=== PATIENT | female | born 1935 | race Caucasian/White ===

== ENCOUNTER 2020-08-02 06:54 | Emergency (ER) | payer MEDICARE, BC ==
[2020-08-02] MEDS ORDERED: PROTONIX20 M1 PO (07:17)
[2020-08-02] MEDS ORDERED: MIRAPEX0.125 M1 PO (07:17)
[2020-08-02] MEDS ORDERED: TIMOPTIC OCUDO OU (07:18)
[2020-08-02] MEDS ORDERED: PRESERVISION A1 EAC1 PO (07:18)
[2020-08-02] MEDS ORDERED: SIMETHICONE PO (07:18)
[2020-08-02] MEDS ORDERED: ZIOPTAN 0.00151 EACH OU (07:20)
[2020-08-02] MEDS ORDERED: TYLENOL 325MG325 MG PO (07:20)
[2020-08-02 08:53] LABS: BASO # 0.1 (0.02-0.10); EOS # 0.3 (0.04-0.40); HEMATOCRIT 35.7 % (37.0-47.0); HEMOGLOBIN 11.2 g/dL (12.5-16.0); LYMPH# 1.9 (1.50-4.00); MEAN CELL VOLUME 102 fl (78-100); MEAN CORPUSCULAR HEMOGLOBIN 32 pg (27-31); MEAN CORPUSCULAR HGB CONC 31 g/dL (33-37); MEAN PLATELET VOLUME 8.3 fl (7.4-10.4); MONO # 0.8 (0.20-0.80); PLATELET COUNT 386 K/mm3 (130-400); RED BLOOD COUNT 3.49 M/mm3 (4.10-5.30); RED CELL DISTRIBUTION WIDTH 14.6 % (11.5-14.5); WHITE BLOOD COUNT 11.2 K/mm3 (4.8-10.8)
[2020-08-02 09:05] LABS: ALBUMIN 3.7 g/dL (3.4-4.8)
[2020-08-02 09:06] LABS: POTASSIUM 3.9 mmol/L (3.5-5.1); SODIUM 138 mmol/L (136-145)
[2020-08-02 09:07] LABS: CALCIUM 9.4 mg/dL (8.3-10.5)
[2020-08-02 09:08] LABS: GLUCOSE 94 mg/dL (65-105); TOTAL PROTEIN 7.9 g/dL (6.2-8.1)
[2020-08-02 09:09] LABS: CARBON DIOXIDE 24 mmol/L (23-31)
[2020-08-02 09:10] LABS: TOTAL BILIRUBIN 0.3 mg/dL (0.2-1.2)
[2020-08-02 09:13] LABS: AST-SGOT 16 U/L (5-34)
[2020-08-02 09:14] LABS: ALT/SGPT 11 U/L (0-55)
[2020-08-02 09:25] LABS: TROPONIN-I < 0.03 ng/mL (<0.030)
[2020-08-02 13:18] VITALS: BP 105/56
[2020-08-02 22:18] LABS: PH-URINE 5.5 (5.0 - 8.0); URINE APPEARANCE HAZY; URINE BILIRUBIN NEGATIVE (NEGATIVE); URINE BLOOD NEGATIVE (NEGATIVE); URINE COLOR YELLOW; URINE GLUCOSE NEGATIVE (NEGATIVE); URINE KETONE NEGATIVE (NEGATIVE); URINE LEUKOCYTE ESTERASE TRACE (NEGATIVE); URINE NITRATE NEGATIVE (NEGATIVE); URINE PROTEIN(semi-quant) TRACE mg/dL (NEGATIVE); URINE UROBILINOGEN NORMAL (NORMAL)
[2020-08-02 22:19] LABS: URINE MUCUS PRESENT (NOT PRESENT)
[2020-10-17] MEDS ORDERED: ANESTHETIC ORAL14 GM TOP (12:23)
[2020-10-17] MEDS ORDERED: DULCOLAX S10 MG/SUPP RC (12:23)
[2020-10-17] MEDS ORDERED: EUCERIN1 CRE TOP (12:24)
[2020-10-17] MEDS ORDERED: IPRATROPIUM BROM3 M1 IH (12:24)
[2020-10-17] MEDS ORDERED: FLEET ENEM1 BOT/133 RC (12:26)
[2020-10-17] MEDS ORDERED: GOOD NEIGH1200 MG/15 PO (12:27)
[2020-10-17] MEDS ORDERED: TYLENOL 325MG325 MG PO (12:30)
[2020-10-17] MEDS ORDERED: ZOFRAN4 M2 PO (12:31)
== END 2020-08-02 12:56 | disposition home or self-care (01) ==
LOC: ED 06:54
PROVIDERS: Family Medicine
DX: S30.0XXA Contusion of lower back and pelvis, initial encounter (principal); I95.0 Idiopathic hypotension; L89.229 Pressure ulcer of left hip, unspecified stage; J43.9 Emphysema, unspecified; K21.9 Gastro-esophageal reflux disease without esophagitis; Z96.641 Presence of right artificial hip joint; Z79.899 Other long term (current) drug therapy; W19.XXXA Unspecified fall, initial encounter; Y92.121 Bathroom in nursing home as the place of occurrence of the external cause
CPT/HCPCS: J7030

== ENCOUNTER → 2020-08-04 | Outpatient (CLI) | payer MEDICARE, BC ==
[2020-08-02 13:18] VITALS: BP 105/56
[~2020-08-04] MED LIST: ANESTHETIC ORAL14 GM TOP; DULCOLAX S10 MG/SUPP RC; EUCERIN1 CRE TOP; FLEET ENEM1 BOT/133 RC; GOOD NEIGH1200 MG/15 PO; IPRATROPIUM BROM3 M1 IH; MIRAPEX0.125 M1 PO; PRESERVISION A1 EAC1 PO; PROTONIX20 M1 PO; SIMETHICONE PO; TIMOPTIC OCUDO OU; TYLENOL 325MG325 MG PO; ZIOPTAN 0.00151 EACH OU; ZOFRAN4 M2 PO
== END ==
LOC: RAD 14:48
DX: M79.605 Pain in left leg (principal); Z96.641 Presence of right artificial hip joint

== ENCOUNTER → 2020-08-06 | Outpatient (CLI) | payer MEDICARE, BC ==
[2020-08-02 13:18] VITALS: BP 105/56
[2020-08-06 23:24] LABS: FOLATE (FOLIC ACID) 12.2 ng/mL (7.0-31.4)
== END ==
LOC: LAB 10:27
PROVIDERS: Family Medicine
DX: D53.1 Other megaloblastic anemias, not elsewhere classified (principal)

== ENCOUNTER → 2020-09-01 | Outpatient (CLI) | payer MEDICARE, BC ==
[2020-08-02 13:18] VITALS: BP 105/56
== END ==
LOC: RAD 08:30
DX: M47.816 Spondylosis without myelopathy or radiculopathy, lumbar region (principal); M48.061 Spinal stenosis, lumbar region without neurogenic claudication; M48.07 Spinal stenosis, lumbosacral region; M47.817 Spondylosis without myelopathy or radiculopathy, lumbosacral region

== ENCOUNTER → 2020-10-13 | Outpatient (CLI) | payer MEDICARE, BC | LOC: LAB 13:33 | DX: K92.1 Melena (principal) ==

== ENCOUNTER → 2020-10-16 | Outpatient (CLI) | payer MEDICARE, BC ==
[2020-10-16 14:10] LABS: BASO # 0.07 (0.02-0.10); EOS # 0.54 (0.04-0.40); HEMATOCRIT 19.1 % (37.0-47.0); LYMPH# 2.17 (1.50-4.00); MEAN CELL VOLUME 108 fl (78-100); MEAN CORPUSCULAR HEMOGLOBIN 35 pg (27-31); MEAN CORPUSCULAR HGB CONC 32 g/dL (33-37); MEAN PLATELET VOLUME 8.5 fl (7.4-10.4); NEU # 5.48 (1.40-6.50); PLATELET COUNT 349 K/mm3 (130-400); RED CELL DISTRIBUTION WIDTH 15.6 % (11.5-14.5)
[2020-10-16 14:24] LABS: RED BLOOD COUNT 1.77 M/mm3 (4.10-5.30)
[2020-10-16 14:25] LABS: HEMOGLOBIN 6.1 g/dL (12.5-16.0)
[2020-10-27 09:41] LABS: FOLATE (FOLIC ACID) 11.1
== END ==
LOC: LAB 13:36
PROVIDERS: Family Medicine
DX: Z79.899 Other long term (current) drug therapy (principal)

== ENCOUNTER → 2020-10-17 | Outpatient (CLI) | payer MEDICARE, BC ==
[2020-10-17] VITALS (15 sets, daily range): BP systolic 82–128; BP diastolic 43–68
[2020-10-17 17:40] LABS: HEMATOCRIT 41.8 % (37.0-47.0); HEMOGLOBIN 13.3 g/dL (12.5-16.0)
== END ==
LOC: AMSURD 10:46
PROVIDERS: Family Medicine
DX: Z79.899 Other long term (current) drug therapy (principal)
CPT/HCPCS: J7050; P9016

== ENCOUNTER 2021-03-09 20:02 | Emergency (ER) | payer MEDICARE, BC ==
[~2021-03-09] VITALS: Ht 162.6 cm; Wt 37.4 kg
[2021-03-09] MEDS ORDERED: PEPCID 20MG TAB20 MG PO (21:35)
[2021-03-09] MEDS ORDERED: REFRESH TEARS15 ML OU (21:38)
[2021-03-09] MEDS ORDERED: BENADRYL EXTRA STR2% TOP (21:41)
[2021-03-09] MEDS ORDERED: FLEET ENEM1 BOT/133 RC (21:42)
[2021-03-09 23:19] LABS: URINE APPEARANCE CLEAR; URINE BILIRUBIN NEGATIVE (NEGATIVE); URINE BLOOD NEGATIVE (NEGATIVE); URINE COLOR YELLOW; URINE GLUCOSE NEGATIVE (NEGATIVE); URINE KETONE NEGATIVE (NEGATIVE); URINE LEUKOCYTE ESTERASE TRACE (NEGATIVE); URINE NITRATE NEGATIVE (NEGATIVE); URINE PROTEIN(semi-quant) TRACE mg/dL (NEGATIVE); URINE UROBILINOGEN NORMAL (NORMAL)
[2021-03-09 23:47] VITALS: BP 90/59
== END 2021-03-09 23:47 | disposition home or self-care (01) ==
LOC: ED 20:02
PROVIDERS: Nurse Practitioner
DX: S30.0XXA Contusion of lower back and pelvis, initial encounter (principal); I95.0 Idiopathic hypotension; J43.9 Emphysema, unspecified; Z79.899 Other long term (current) drug therapy; W01.198A Fall on same level from slipping, tripping and stumbling with subsequent striking against other object, initial encounter; Y92.129 Unspecified place in nursing home as the place of occurrence of the external cause

== ENCOUNTER → 2021-04-13 | Outpatient (CLI) | payer MEDICARE, BC ==
[~2021-04-13] MED LIST changes: +BENADRYL EXTRA STR2% TOP; +PEPCID 20MG TAB20 MG PO; +REFRESH TEARS15 ML OU
[2021-04-14 00:17] LABS: URINE APPEARANCE HAZY; URINE COLOR YELLOW
[2021-04-14 00:23] LABS: URINE BILIRUBIN NEGATIVE (NEGATIVE); URINE BLOOD NEGATIVE (NEGATIVE); URINE GLUCOSE NEGATIVE (NEGATIVE); URINE KETONE NEGATIVE (NEGATIVE); URINE LEUKOCYTE ESTERASE 1+ (NEGATIVE); URINE NITRATE NEGATIVE (NEGATIVE); URINE PROTEIN(semi-quant) 1+ (NEGATIVE); URINE UROBILINOGEN NORMAL (NORMAL)
== END ==
LOC: LAB 23:25
PROVIDERS: Family Medicine
DX: N39.0 Urinary tract infection, site not specified (principal)

== ENCOUNTER → 2021-07-01 | Outpatient (CLI) | payer MEDICARE, BC, MEDICAID ==
[2021-07-01 13:03] LABS: URINE APPEARANCE CLEAR; URINE BILIRUBIN NEGATIVE (NEGATIVE); URINE BLOOD NEGATIVE (NEGATIVE); URINE COLOR YELLOW; URINE GLUCOSE NEGATIVE (NEGATIVE); URINE KETONE NEGATIVE (NEGATIVE); URINE LEUKOCYTE ESTERASE TRACE (NEGATIVE); URINE NITRATE NEGATIVE (NEGATIVE); URINE PROTEIN(semi-quant) TRACE (NEGATIVE); URINE UROBILINOGEN NORMAL (NORMAL)
[2021-07-01 13:04] LABS: URINE MUCUS PRESENT (NOT PRESENT)
== END ==
LOC: LAB 11:47
PROVIDERS: Family Medicine
DX: N39.3 Stress incontinence (female) (male) (principal)

== ENCOUNTER → 2021-07-02 | Outpatient (CLI) | payer MEDICARE, BC, MEDICAID ==
[2021-07-02 10:53] LABS: HEMOGLOBIN 11.5 g/dL (12.5-16.0); MEAN PLATELET VOLUME 8.6 fl (7.4-10.4); RED BLOOD COUNT 3.38 M/mm3 (4.10-5.30); RED CELL DISTRIBUTION WIDTH 12.5 % (11.5-14.5); WHITE BLOOD COUNT 8.2 K/mm3 (4.8-10.8)
[2021-07-02 10:58] LABS: ALBUMIN 3.8 g/dL (3.4-4.8); POTASSIUM 4.2 mmol/L (3.5-5.1)
[2021-07-02 10:59] LABS: CALCIUM 9.6 mg/dL (8.3-10.5)
[2021-07-02 11:00] LABS: TOTAL PROTEIN 7.4 g/dL (6.2-8.1)
[2021-07-02 11:02] LABS: TOTAL BILIRUBIN 0.3 mg/dL (0.2-1.2)
[2021-07-03 01:49] LABS: FOLATE (FOLIC ACID) 9.1 ng/mL (2.0-20.0)
[2021-07-05 22:00] LABS: FOLATE (FOLIC ACID) 7.7 ng/mL (2.0-20.0)
== END ==
LOC: LAB 10:30
PROVIDERS: Family Medicine
DX: N39.0 Urinary tract infection, site not specified (principal); R41.0 Disorientation, unspecified; Z86.73 Personal history of transient ischemic attack (TIA), and cerebral infarction without residual deficits

== ENCOUNTER 2021-08-15 13:58 | Emergency (ER) | payer MEDICARE, BC, MEDICAID ==
[2021-08-15] MEDS ORDERED: BACLOFEN5 MG PO (14:19)
[2021-08-15] MEDS ORDERED: PERCOCET 325 MG1 TA2 PO (16:25)
[2021-08-15 16:42] VITALS: BP 102/70
== END 2021-08-15 16:44 | disposition home or self-care (01) ==
LOC: ED 13:58
DX: S72.115A Nondisplaced fracture of greater trochanter of left femur, initial encounter for closed fracture (principal); S80.02XA Contusion of left knee, initial encounter; S60.221A Contusion of right hand, initial encounter; S30.0XXA Contusion of lower back and pelvis, initial encounter; I95.0 Idiopathic hypotension; W06.XXXA Fall from bed, initial encounter; Y92.129 Unspecified place in nursing home as the place of occurrence of the external cause
CPT/HCPCS: J3010

== ENCOUNTER → 2021-10-14 | Outpatient (CLI) | payer MEDICARE, BC, MEDICAID ==
[~2021-10-14] MED LIST changes: +BACLOFEN5 MG PO; +PERCOCET 325 MG1 TA2 PO
[2021-10-14 08:15] LABS: URINE WBC 0 /hpf (0-3)
[2021-10-14 08:16] LABS: URINE APPEARANCE HAZY; URINE BILIRUBIN NEGATIVE (NEGATIVE); URINE BLOOD NEGATIVE (NEGATIVE); URINE COLOR LIGHT YELLOW; URINE GLUCOSE NEGATIVE (NEGATIVE); URINE KETONE NEGATIVE (NEGATIVE); URINE LEUKOCYTE ESTERASE NEGATIVE (NEGATIVE); URINE NITRATE NEGATIVE (NEGATIVE); URINE PROTEIN(semi-quant) NEGATIVE (NEGATIVE); URINE UROBILINOGEN NORMAL (NORMAL)
== END ==
LOC: LAB 00:46
PROVIDERS: Internal Medicine
DX: N39.3 Stress incontinence (female) (male) (principal)